=== PATIENT | female | born 1975 | race Caucasian/White ===

== ENCOUNTER 2022-09-10 00:45 | Day surgery (SDC) | payer OTHER, SELFPAY ==
--- NOTE | 2022-08-27 12:46 | SUR.PREOP ---
Report to the Outpatient Waiting Room, entrance under the green pavilion located off [facility], at time 0600 on date 09/10/22. Planned Procedure Time: 0730. Time changes happen often and if your time is changed the preop area will call you the afternoon before. - You and your visitor will be asked to self-screen and do not enter if you have any COVID symptoms. - Only one visitor is requested with a max of two and NO children visitors are allowed at this time. - The patient visitor may be requested to leave or wait in car when not with patient due to distancing restrictions. - A mask is optional within the hospital at this time. Patients may have clear liquids (water, carbonated beverages, clear teas, apple juice) until 3 hours prior to surgery with a maximum of 20 ounces. - NO CLEAR LIQUIDS AFTER 0430. NO COFFEE. NO DAIRY. - No food from midnight until time of surgery - Infants may have breast milk until 4 hours before surgery, infant formula 6 hours prior to surgery. - Children will be allowed to drink immediately following surgery. If applicable, please bring a bottle or sippy cup to assist with drinking. Juice, water, soda, and popsicles are readily available. For infants on formula, please bring formula the day of surgery. Pacifiers are allowed. Take the following medications with a SIP of water the morning of surgery: SERTRALINE DO NOT STOP ANY OF YOUR OTHER PRESCRIPTION MEDICATIONS PRIOR TO SURGERY ?EXCEPT THE FOLLOWING Medications to discontinue per physician N/A Date to take last dose N/A Please no make-up, nail bermudian, hairspray, perfume, deodorant, or body powder the day of surgery. No jewelry (including any body piercings) or valuables the day of surgery, leave them at home. Please take a shower or bath the night before, or the morning of, surgery with an antibacterial soap. Wear comfortable, loose fitting clothing. Children are encouraged to wear pajamas. - Jewelry must be removed prior to entering the operating room. Rings and piercings that are not removed may be cut off. - The hospital will not accept responsibility for valuables. - Please leave all valuables, including medications, at home the day of surgery. If you are going home after surgery, a licensed non emergency services ambulance driver must drive you home. - NO public transportation without another adult if you receive anesthesia. - We recommend that an adult stay with you for 24 hours following discharge. - We also recommend that you do not drive, make important decision, drink alcoholic beverages, or take any drugs that were not prescribed by your health care provider for at least 24 hours after your discharge time. For Pediatric surgeries, we recommend two adults accompany the child home. Follow any additional instructions given to you from your surgeon. If you or anyone in your household have experienced Covid symptoms in the past week, please notify your surgeon or the nurse liaison at the phone number below for possible testing. Telephone instructions given to MATT NUR and asked if any additional questions and then verbalized understanding. Patient advised to call surgeon office or pre surgery nurse liaison [phone] if any additional questions.
[2022-08-27 12:56] VITALS: BMI 26.3
[2022-09-10] VITALS (10 sets, daily range): BP systolic 104–136; BP diastolic 59–82; PULSE 62–81; RESP 12–16; TEMP 36.3–37.2; O2SAT 98–100
--- NOTE | 2022-09-10 06:35 | WPDANESEPPF ---
Anes - Initial Pre Proc Eval Procedure: Operation Date: 09/10/22 07:30 Proposed Procedures p Abdominoplasty with Liposuction - Gian Elizabeth MD Date/Time: 09/10/22 06:35 Surgeon: Gian Elizabeth MD Pre Op Diagnosis: skin laxity, localized adiposity Patient Data Age: 47 Gender: F Height: 1.78 m Weight: 82.6 kg Allergies Allergy/AdvReac Type Severity Reaction Status Date / Time No Known Allergies Allergy Verified 09/10/22 06:20 Home Medications Medication Instructions Recorded Confirmed Type sertraline 50 mg tablet 50 mg PO DAILY 02/05/22 09/10/22 History cetirizine 10 mg tablet (Zyrtec) 10 mg PO DAILY PRN allergies 08/27/22 09/10/22 History ferrous sulfate 325 mg (65 mg 325 mg PO DAILY 08/27/22 09/10/22 History iron) tablet Laboratory Tests 09/10/22 06:22 Cotinine Pending Patient hx anesthesia problems: none Family hx anesthesia problems: none Results Review: All pre-operative results and documents have been reviewed as part of the pre-operative evaluation. [facility] Past Medical History Medical History (Updated 09/10/22 @ 06:35 by Phil Sylvester MD) Overweight Surgical History Surgical History (Updated 02/05/22 @ 10:45 by Leticia Torres) History of meniscectomy of left knee History of thoracotomy Family History Family History Father Factor 5 Leiden mutation, heterozygous Alpha 1-antitrypsin PiMS phenotype Mother Hypertension Social History Social History Smoking status: Never smoker Alcohol intake: current Drinks per week: 2 Substance use: never Spiritual care concerns: No Anes - Eval Final PreProcedure Day of Procedure 09/10/22 06:35 Patient weight: overweight Heart: regular rate and rhythm Lungs: clear to auscultation Airway: Mallampati scale class II Neurological: alert and oriented Last oral intake: >/= 8 hours ASA classification: II Emergent: no Anesthetic plan: proceed Anesthesia type and monitoring: general ETT and standard monitoring Results Review: All pre-operative results and documents have been reviewed as part of the pre-operative evaluation. Informed Consent: The patient's anesthetic plan and its attendant risks and benefits were discussed with the patient/family/POA. Questions were solicited and answers provided to the satisfaction of the patient/family/POA.
[2022-09-10] MEDS: LACTATED RINGERS 1,000 ML 30 ML IV CONT ×2 (06:40→11:17)
[2022-09-10 06:45] LABS: Urine Cotinine NEGATIVE
--- NOTE | 2022-09-10 06:48 | WPDHPUPDATE1 ---
History and Physical Update Update Date/Time: 09/10/22 06:48 History and Physical has been reviewed, including an updated exam of the patient. There are NO changes in the patient's condition. Risks, benefits, and alternatives have been discussed and questions answered. Patient agrees to proceed with procedure.
--- NOTE | 2022-09-10 06:48 | W.PM.PROC2 ---
Procedure Note - Detailed Date of Procedure 09/10/22 Pre-op Diagnosis skin laxity, localized adiposity Post-op Diagnosis Same Procedure Performed Progressive tension abdominoplasty with suction lipectomy Surgeon Gian Elizabeth MD Anesthesia General Findings Lipoaspirate: 2677 cc Tissue removed: 1083.3 grams Description of Procedure They are here today for abdominoplasty. Previously and again today the risks, benefits, alternatives were discussed in extensive detail. I wanted them to be very realistic about the risks involved as well as expectations. We discussed aftercare and what to monitor for. I was very upfront about the risks of wound breakdown leading to loss of skin, open wounds, and need for additional procedures with permanent abdominal deformity. We discussed DVT/PE risks and management. Made sure answered all of their questions to their satisfaction today and consent was obtained. They were marked in the preoperative holding area with their verification. The patient was taken to the operating room placed supine on the operating table. Anesthesia was provided by anesthesiology. A Mercado catheter was started. They were prepped and draped in a standard sterile fashion. A surgical time-out was taken. I placed the patient in a flexed position to verify the upper and lower markings would reach. I then placed supine. A thorough abdominal examination was completed. Stab incisions were made and tumescent solution infiltrated. Once adequate time was allowed for hemostasis a 5mm basket cannula was utilized to complete suction lipectomy based on S.A.F.E. technique in multiple planes and passes. There were turned to bilateral lateral decubitus position with care taken to protect them for injury during this process. Suction lipectomy continued to result based on pre-operative planning, intra-operative observation, and rolling pinch test which were in full agreement. A 10 blade was used to make the upper incision. I continued dissection down to the level of fascia. Elevated just what was necessary for repair of the diastasis. I then again flexed the bed to verify the upper skin flap would reach the lower markings without tension. Once verified I placed her supine once again and a 10 blade used to make the lower incision. I elevated up to level the umbilicus and left the umbilicus intact on a well-vascularized stalk. The intervening tissue was removed. A 2 mm blunt cannula with 0.5% bupivicaine was injected deep to the fascia bilaterally. I plicated the diastasis recti using 0 PDO stratafix barbed suture. This was in 2 separate layers using 2 separate sutures as well. I repaired around the umbilicus leaving plenty of room for well-vascularized stalk of the umbilicus with 2-0 PDS. The patient was flexed and starting from superior to inferior began plication using 2-0 Vicryl to obliterate all space in a standard progressive tension fashion. At the umbilicus I marked out the location of the skin and inset this with 3-0 Monocryl and 4-0 Vicryl. I continued the remainder of the plication using 2-0 Vicryl until I reached my lower planned scar line. I trimmed any excess skin of the upper flap making sure this was a tension-free closure. A single drain was brought out laterally. I then approximated using a 3 point suture with 2-0 Vicryl followed by 3-0 stratafix ,running subcuticular 4-0 Monocryl, and tissue glue. Fluffs and an abdominal binder were placed. The patient was transferred to the bed in a flexed position. Awoken and taken to the PACU without difficulty. All instrument and sponge counts were correct at the end of the case. Estimated Blood Loss 50 Drains No Packing Yes (15 juana) Pathology None sent Complications No immediate complications Condition Stable Disposition PACU
[2022-09-10] MEDS: SCOPOLAMINE 1.5 MG PATCH TRANSDERM (06:57)
[2022-09-10] MEDS: ceFAZolin 2 GM/D5W 50 ML 2 GM/50 ML BAG IVPB (07:21)
[2022-09-10] MEDS: TRANEXAMIC ACID 1,000MG/ISO100 1,000 MG/100 ML BAG 200 MG IVPB (07:34)
--- NOTE | 2022-09-10 10:33 | SUR.OPER ---
PATIENT ARMS MAINTAIN POSITION BILATERAL LEGS MAINTAIN POSITION.
[2022-09-10] MEDS: LACTATED RINGERS IRRIG 1,000 ML, LIDOCAINE HCL 1% LOCAL INJ 50 ML, EPINEPHrine HCL INJ ... INFILTRATE (10:52)
[2022-09-10] MEDS: fentaNYL CITRATE INJ (*CRX) 100 MCG/2 ML VIAL 25 MCG IV PUSH ×4 (11:32→12:01)
--- NOTE | 2022-09-10 12:52 | PC.NURSE ---
Patient transferred to post room #287 via ( stretcher ). Support person present. Oriented to unit, room, information board, rooming in, admission packet and security measures. Patient verbalizes understanding.
[2022-09-10] MEDS: LACTATED RINGERS 1,000 ML 125 ML IV CONT (12:58)
[2022-09-10] MEDS: carisoprodoL (*CRX) 350 MG TABLET PO ×3 (12:59→23:20)
[2022-09-10] MEDS: KETOROLAC 15 MG/ML VIAL (*BKC) IV PUSH ×2 (12:59→19:16)
[2022-09-10] MEDS: MORPHINE SULFATE (*CRX) 2 MG/ML INJ IV PUSH ×2 (13:00→15:13)
[2022-09-10] MEDS: oxyCODONE/ACETAMINOPHEN (*CRX) 5-325 MG TABLET PO ×3 (16:16→23:20)
[2022-09-10] MEDS: ENOXAPARIN 40 MG/0.4 ML SYRINGE SUB-Q (17:19)
[2022-09-10] MEDS: DOCUSATE SODIUM 100 MG CAPSULE PO (19:16)
[2022-09-11] MEDS: oxyCODONE/ACETAMINOPHEN (*CRX) 5-325 MG TABLET PO ×4 (02:31→12:25)
[2022-09-11] MEDS: IBUPROFEN 600 MG TABLET PO ×2 (05:38→12:24)
[2022-09-11] MEDS: carisoprodoL (*CRX) 350 MG TABLET PO ×2 (05:38→12:24)
[2022-09-11 05:40] VITALS: BP 108/58; PULSE 78; RESP 16; TEMP 37.1
--- NOTE | 2022-09-11 07:23 | WPDPN ---
Progress Note: A&P Assessment and Plan (1) Skin laxity: Code(s): L57.4 - Cutis laxa senilis Status: Acute Assessment and Plan: Doing well after progressive tension abdominoplasty and suction lipectomy. Will discharge home. Today we had a lengthy discussion about the care. What to monitor for. Activity limitations. What is a medical emergency and when to dial 911 / proceed to the ER. Call with all other questions or concerns. We will see her back. (2) Micromastia: Code(s): N64.82 - Hypoplasia of breast Status: Acute Subjective Date/time seen: 09/11/22 07:23 Interval history: Doing well after progressive tension abdominoplasty with suction lipectomy. No n/v. No f/c. No SOB. No calf tenderness. No CP. Pain controlled. Has not ambulated yet. Review of Systems Review of Systems: All systems reviewed & are unremarkable except as noted in HPI and below Exam Narrative: Alert & Oriented NOD Respiratory unlabored Abdomen healing well. Good color / cap refill. No signs of infection. No hematoma. No seroma. Drain removed. No calf tenderness. Negative Choco's Objective Data Vital Signs Vital Signs: Vital Signs - 24 hr 09/10/22 11:17 09/10/22 11:30 09/10/22 11:45 Temperature 36.3 C L Pulse Rate 77 76 68 Respiratory Rate 16 12 12 Blood Pressure 128/80 127/80 131/79 Pulse Oximetry 100 100 100 Oxygen Delivery Simple Face Mask Simple Face Mask Simple Face Mask Oxygen Flow Rate 8 8 8 09/10/22 11:51 09/10/22 12:00 09/10/22 12:15 Temperature Pulse Rate 68 72 Respiratory Rate 12 12 Blood Pressure 129/82 129/77 Pulse Oximetry 98 98 Oxygen Delivery Room Air Room Air Room Air Oxygen Flow Rate 09/10/22 12:30 09/10/22 13:00 09/10/22 12:55 Temperature 37.2 C Pulse Rate 70 74 Respiratory Rate 12 16 Blood Pressure 136/81 131/74 Pulse Oximetry 99 100 Oxygen Delivery Room Air Room Air Oxygen Flow Rate 09/10/22 17:49 09/10/22 17:49 09/10/22 19:05 Temperature 36.7 C 37.2 C Pulse Rate 81 75 Respiratory Rate 16 16 Blood Pressure 104/63 104/59 L Pulse Oximetry 98 Oxygen Delivery Room Air Oxygen Flow Rate 09/11/22 05:40 Temperature 37.1 C Pulse Rate 78 Respiratory Rate 16 Blood Pressure 108/58 L Pulse Oximetry Oxygen Delivery Oxygen Flow Rate Intake/Output Intake/Output: Intake & Output 09/08/22 09/09/22 09/10/22 09/11/22 23:59 23:59 23:59 23:59 Intake Total 1250 1000 Output Total 1150 820 Balance 100 180 Meds/Results Medications: Active Medications Generic Name Dose Route Start Last Admin Trade Name Freq PRN Reason Stop Dose Admin Carisoprodol 350 mg 09/10/22 12:00 09/11/22 05:38 Carisoprodol (*Crx) 350 Mg Tablet PO 350 mg Q6HR FABIENNE Administration Diazepam 5 mg 09/10/22 11:25 Diazepam (*Crx) 5 Mg Tablet PO TID PRN Anxiety Docusate Sodium 100 mg 09/10/22 21:00 09/10/22 19:16 Docusate Sodium 100 Mg Capsule PO 100 mg Q12HR FABIENNE Administration Enoxaparin Sodium 40 mg 09/10/22 18:00 09/10/22 17:19 Enoxaparin 40 Mg/0.4 Ml Syringe SUB-Q 40 mg DAILY [facility] Administration Ibuprofen 600 mg 09/11/22 02:52 09/11/22 05:38 Ibuprofen 600 Mg Tablet PO 600 mg Q6H PRN Administration Cramping Loratadine 10 mg 09/10/22 11:31 Loratadine 10 Mg Tablet PO DAILY PRN allergies Morphine Sulfate 2 mg 09/10/22 11:25 09/10/22 15:13 Morphine Sulfate (*Crx) 2 Mg/Ml Inj IV PUSH 2 mg Q2H PRN Administration Pain Ondansetron HCl 4 mg 09/10/22 11:25 Ondansetron Inj 4 Mg/2 Ml Vial IV PUSH Q6H PRN Nausea Oxycodone/Acetaminophen 1 - 2 tablet 09/10/22 11:25 09/11/22 05:38 Oxycodone/Acetaminophen (*Crx) 5-325 Mg Tablet PO 1 tablet Q6H PRN Administration Pain Sertraline HCl 50 mg 09/11/22 09:00 Sertraline Hcl 50 Mg Tablet PO DAILY FABIENNE
--- NOTE | 2022-09-11 07:26 | P.DS_ITS ---
DS: Admitting Diagnosis Discharge Date 09/11/2022 Admitting Diagnosis Skin laxity Localized adiposity DS: Discharge Diagnosis Discharge Diagnosis (1) Skin laxity: Code(s): L57.4 - Cutis laxa senilis Status: Acute (2) Localized adiposity: Code(s): E65 - Localized adiposity Status: Acute DS: Summary Hospital Course Hospital Course: Doing well after progressive tension abdominoplasty with suction lipectomy. Postoperatively has done well. Will discharge home. Time Spent with Patient Time attestation: Total time spent providing and/or coordinating discharge services: Exam Narrative: Alert & Oriented NOD Respiratory unlabored Abdomen healing well. Good color / cap refill. No signs of infection. No hematoma. No seroma. Drain removed. No calf tenderness. Negative Choco's Discharge Plan Discharge Patient Disposition: Home, Self-Care Discharge Instructions: POST OPERATIVE DISCHARGE INSTRUCTIONS GIAN ELIZABETH M.D. [facility] [address] [place] [address] * No driving for 24 hours after anesthesia and while you are taking pain medication. * Take all prescribed medication as directed * Diet as tolerated. * No lifting or activity that raises blood pressure for 48 hours. * Regular walking / ambulation. * May shower 24 hours after surgery. Once you shower do not take pain medication before showering as the combination of medication and heat may cause you to feel dizzy or pass out. * No pools or tubs for 2 weeks. * Slowly stand up straight as tolerated. * No straining or lifting more than 20 pounds. * If no bowel movement within 24 hours may use laxative. * Call with any questions or concerns. * Dressing Care: Continue abdominal binder / foam 23 hours per day. If you have any questions or concerns, please call the office . If it is after hours you will be directed to the armor reconnaissance vehicle crewman exchange. Shortness of breath, chest pain, or other medical emergency dial 911 / proceed to the Emergency Room. Remove the Scopolamine patch that was placed behind your ear in 72 hours or less. Wash your hands after touching. Stand Alone Forms: General Discharge Instructions Follow-up/Referrals: Gian Elizabeth MD [Physician] - 1 Week Discharge Medications: Continued sertraline 50 mg tablet 50 mg PO DAILY ferrous sulfate 325 mg (65 mg iron) Tablet 325 mg PO DAILY cetirizine [Zyrtec] 10 mg Tablet 10 mg PO DAILY PRN (Reason: allergies)
[2022-09-11 08:45] VITALS: BP 92/53; PULSE 81; RESP 18; TEMP 36.7; O2SAT 97
[2022-09-11] MEDS: DOCUSATE SODIUM 100 MG CAPSULE PO (08:49)
[2022-09-11] MEDS: SERTRALINE HCL 50 MG TABLET PO (08:49)
--- NOTE | 2022-09-11 10:04 | WPDANESPN ---
Anes - Prog Note Post-Op Date/Time: 09/11/22 10:04 Cardiovascular status: normal Respiratory status: normal Airway patency: baseline Mental status: baseline Post-Op hydration status: normal Vital Signs: Last Vital Signs Temp 98.0 F 09/11/22 08:45 Pulse 81 09/11/22 08:45 Resp 18 09/11/22 08:45 BP 92/53 L 09/11/22 08:45 Pulse Ox 97 09/11/22 08:45 O2 Del Method Room Air 09/10/22 17:49 O2 Flow Rate 8 09/10/22 11:45 Pain Score (VAS): 3 I/O: Intake & Output 09/10/22 09/11/22 09/11/22 23:59 07:59 15:59 Intake Total 1000 Output Total 1050 820 Balance -1050 180 Post-procedural complaints: none Patient Feedback: Patient satisfied with anesthetic care.
== END 2022-09-11 12:40 | disposition home or self-care (01) ==
LOC: ANHSURGERY 07:00 → ANHOB2 12:36
PROVIDERS: PCP Family Medicine; Visit Provider Surgery Plastic and Reconstructive Surgery
PROC: (CPT 15830; principal; 2022-09-10 07:30)
DX: Z41.1 Encounter for cosmetic surgery (principal); L57.4 Cutis laxa senilis; E65 Localized adiposity
CPT/HCPCS: 15830; 15847; 15877; 80307; 99199; A9270; J0171; J0690; J1100; J1170; J1650; J1885; J2250; J2270; J2405; J2704; J2710; J3010; J7120